=== PATIENT | male | born 1955 | race Caucasian/White ===

== ENCOUNTER 2017-07-29 13:12 | Inpatient (IN) | payer SELFPAY ==
[2017-07-29] MEDS ORDERED: Labetalol IV* 5 MG/ML 20 ML VIAL IV PUSH ONE (14:04)
--- NOTE | 2017-07-29 14:14 | RAD ---
HISTORY: Shortness of breath COMPARISONS: January 22, 2004 VIEWS: 1: frontal portable view of the chest at 2:00 PM FINDINGS: LINES AND TUBES: None. CARDIOMEDIASTINAL SILHOUETTE: The cardiac silhouette is enlarged. The cardiomediastinal silhouette is otherwise normal for portable technique. PLEURA: The costophrenic angles are sharp. No pleural abnormalities are noted. LUNG PARENCHYMA: There is prominence of the central pulmonary vasculature. ABDOMEN: The upper abdomen is clear. There is no subphrenic gas. BONES AND SOFT TISSUES: No bone or soft tissue abnormalities are noted. IMPRESSION: CARDIOMEGALY WITH PULMONARY VASCULAR CONGESTION
[2017-07-29 14:21] LABS: ABS Basophils 0 10^3/ul (0-0.2); ABS Eosinophils 0.1 10^3/ul (0-0.6); ABS Monocytes 0.3 10^3/ul (0-0.8); ABS Neutrophils 3.4 10^3/ul (1.5-7.7); ABS Nucleated RBC 0 10^3/ul; Eosinophil % 1.2 % (0-6); Hematocrit 40 % (42-52); Hemoglobin 13.1 g/dl (14.0-18.0); Lymphocyte % 21.5 % (25-47); Mean Corpuscular HGB Conc 33 g/dl (31-36); Mean Corpuscular Hemoglobin 32 pg (27-31); Mean Corpuscular Volume 97 fL (80-94); Mean Platelet Volume 10 um3 (7.4-10.4); Nucleated Red Blood Cells % 0.1; Platelet Count 134 10^3/ul (150-450); Red Blood Count 4.11 10^6/ul (4.0-5.4); Red Cell Distribution Width 16 % (10.5-15); White Blood Count 4.8 10^3/ul (3.5-10.8)
[2017-07-29 14:34] LABS: INR 1.12 (0.77-1.02)
[2017-07-29 14:38] LABS: EGFR Non-African American 90.1 (>60)
[2017-07-29] MEDS ORDERED: Furosemide IV* 10 MG/ML VIAL (40 MG) IV SLOW PU ONE ×2 (14:58→16:22)
[2017-07-29] MEDS ORDERED: Acetaminophen TAB* 325 MG PO PRN (16:22)
[2017-07-29] MEDS ORDERED: Ondansetron INJ* 2 MG/ML VIAL IV PRN (16:22)
[2017-07-29] MEDS ORDERED: Aspirin Low Dose CHEW TAB* 81 MG PO ONE (16:22)
[2017-07-29] MEDS ORDERED: Perflutren Lipid Microsphere* 3 ML VIAL ONE (16:25)
[2017-07-29] MEDS ORDERED: Nitroglycerin 2% OINT* 1 GM PAK TOPICAL SCH (16:30)
--- NOTE | 2017-07-29 17:18 | ECHO ---
Patient: LULÚ HUGGINS [facility] Rec#: [id number] : 1955 Date: 07/29/2017 Age: 61y Height: 177.8 cm / 70.0 in Weight: 136.08 kg / 299.9 lbs Sex: M BSA: 2.48 Room#: 16 Admit Date#: 07/29/2017 Type: Inpatient Referring: Travis Kerr NP Reading: Marcello Marquez MD Clerk Telegraph Service: Kimberlyn GilletteRDCS,RDMS Transthoracic Echocardiogram Indication: CHF, Cardiomyopathy BP: 144/104 HR: 78 Rhythm: NSR Findings History: Edema, SOB, CAD, TN, PCI, HTN, HLD, DM Technical Comments: The study is technically limited due to patient body habitus. Left Ventricle: The left ventricular chamber size is mildly dilated. Mild concentric left ventricular hypertrophy is observed. There is global hypokinesis of the left ventricle with minor regional variation. There is severely decreased left ventricular systolic function. The estimated ejection fraction is less than 20%. Abnormal left ventricular diastolic function is observed. Left Atrium: The left atrium is mild to moderately dilated. Right Ventricle: The right ventricular cavity size is normal. The right ventricular global systolic function is severely reduced. Right Atrium: The right atrium is moderately dilated. Aortic Valve: The aortic valve structure is not well visualized. The aortic valve leaflets are moderately thickened. Systolic excursion of the aortic valve cusps is reduced. There is no evidence of aortic regurgitation. There is severe aortic stenosis. The aortic valve area, by peak velocities, is calculated at 0.6 cm2. Mitral Valve: The mitral valve leaflets are mildly thickened. There is a trace of mitral regurgitation. There is no evidence of mitral stenosis. Tricuspid Valve: The tricuspid valve leaflets are normal. There is trace tricuspid regurgitation. There is evidence of borderline pulmonary hypertension. Pulmonic Valve: The pulmonic valve structure is not well visualized. There is no evidence of pulmonic regurgitation. Pericardium: A trivial pericardial effusion is visualized. Aorta: The aortic root appears normal. The aortic arch is not well visualized. Pulmonary Artery: The main pulmonary artery is not well visualized. Venous: The inferior vena cava is dilated. There is no change in the dimension of the inferior vena cava with respiration consistent with markedly increased right atrial pressure. Contrast: Definity was used to optimize study. A total of 3 ml was used Summary: There was not any prior study for comparison. Conclusions There is global hypokinesis of the left ventricle with minor regional variation. There is severely decreased left ventricular systolic function. The estimated ejection fraction is less than 20%. Mild concentric left ventricular hypertrophy is observed. The right ventricular global systolic function is severely reduced. The aortic valve leaflets are moderately thickened. There is severe aortic stenosis. There is no evidence of aortic regurgitation. There is a trace of mitral regurgitation. There is trace tricuspid regurgitation. There is evidence of borderline pulmonary hypertension. A trivial pericardial effusion is visualized. Measurements Name Value Normal Range RVIDd (AP) 2D 3.5 cm (0.9 - 2.6) RAd ISD 4CH 5.8 cm (3.4 - 4.9) RA (A4C)W 5 cm (2.9 - 4.6) IVSd (2D) 1.3 cm (0.6 - 1) LVPWd (2D) 1.4 cm (0.6 - 1) LVIDd (2D) 5.5 cm (3.6 - 5.4) LVIDs (2D) 5.2 cm - LV FS (2D) 7 % (25 - 45) Aortic Annulus 2 cm (1.4 - 2.6) Ao root diameter (2D) 3.1 cm (2.1 - 3.5) Ascending Ao 3 cm (2.1 - 3.4) LA dimension (AP) 2D 5 cm (2.3 - 3.8) LAd ISD 4CH 5.7 cm (2.9 - 5.3) LA ISD 4CH W 3.2 cm (2.5 - 4.5) Name Value Normal Range LA ESV SP 4CH (A/L) 50.42 ml - LA ESV SP 2CH (A/L) 103.75 ml - LA ESV BP (A/L) 73.56 ml - LA ESV BP (A/L) index 30 ml/m2 - LA ESV SP 4CH (MOD) 46.76 ml - LA ESV SP 2CH (MOD) 97.58 ml - Name Value Normal Range MV E-wave Vmax 0.9 m/sec - MV deceleration time 152 msec - MV A-wave Vmax 0.3 m/sec - MV E:A ratio 3 ratio - LV septal e' Vmax 0.03 m/sec - LV lateral e' Vmax 0.05 m/sec - LV E:e' septal ratio 30 ratio - LV E:e' lateral ratio 18 ratio - Name Value Normal Range AV Vmax 3.1 m/sec - AV VTI 59 cm - AV peak gradient 38 mmHg - AV mean gradient 21 mmHg - LVOT diameter 2 cm - LVOT Vmax 0.6 m/sec - LVOT VTI 11.2 cm - LVOT peak gradient 1.4 mmHg - LVOT mean gradient 0.6 mmHg - DOI (VTI) 0.2 ratio - GEN (continuity Vmax) 0.6 cm2 - GEN (continuity VTI) 0.6 cm2 - Name Value Normal Range TR Vmax 2.2 m/sec - TR peak gradient 19 mmHg - RAP 15 mmHg - RVSP 34 mmHg - IVC diameter 3.1 cm - Name Value Normal Range PV Vmax 0.5 m/sec - PV peak gradient 1 mmHg -
[2017-07-29] MEDS: Heparin VIAL(*) 5000 UNITS/ML VIAL (FIVE THOUSAND) SUBCUT SCH (22:24)
--- NOTE | 2017-07-29 22:45 | HP ---
CC: Dr. Marquez * HISTORY AND PHYSICAL: DATE OF ADMISSION: 07/29/17 PRIMARY CARE PROVIDER: None. ATTENDING PHYSICIAN WHILE IN THE HOSPITAL: Joshua Veliz MD *(report dictated by Travis Kerr NP). CONSULTING DIRECTOR DIABETES: Dr. Marquez. CHIEF COMPLAINT: 1. Chest discomfort. 2. Dyspnea on exertion. 3. Orthopnea. 4. Weight gain. HISTORY OF PRESENT ILLNESS: Mr. Robertson is a 61-year-old male patient. He carries a history of coronary artery disease. He states the last time he had stents placed was in 2009 at [facility]. We will try to get those records. He comes into our ER today stating that over the last week he has noticed he has had worsening swelling particularly in his genital area, his lower extremities. He states they are always swollen. He has been gaining weight. He states for 2 years he has been going downhill. He has had intermittent chest pain. He states that it is very typical for him to walk to the mailbox and to have chest discomfort with walking just to the mailbox and dyspnea on exertion. He states that he has noticed that he has been unable to lie flat. He states that most of his clothing is not fitting him, he has been gaining weight. He just has been declining over the last couple of weeks. He states he has not had any fevers or chills. He denied having any abdominal discomfort. There is no pain in his testicles or in his penis. He just states that it has been more swollen, he is gaining weight and he has not been feeling well. He came into our ER today because of the worsening swelling. He was evaluated. It was noted that he had pulmonary edema. On his chest x-ray he appeared to be in heart failure. He also had an elevated troponin. He is chest pain free now, but anytime when we lie him flat, he is getting profoundly short of breath. He was evaluated in the ED, there was concern for possible CHF and we were asked to evaluate for admission. PAST MEDICAL HISTORY: Significant for: 1. CAD. 2. Hypertension. 3. Hyperlipidemia. 4. GERD. 5. Borderline diabetes. 6. OH. 7. History of V-tach. PAST SURGICAL HISTORY: He has had heart catheterizations x2 in 2003 and 2009. MEDICATIONS: Home meds were denied. ALLERGIES TO MEDICATIONS: Include no known drug allergies. FAMILY HISTORY: His mother had a history of peripheral vascular disease and heart disease. Father had a history of pneumonia. SOCIAL HISTORY: He does not smoke. He occasionally drinks alcohol. Surrogate decision maker is his friend, Mando. REVIEW OF SYSTEMS: There was no documented fever. He does admit to a significant weight change, although he does not know how much. He denies having any double vision. He denies having any ear discharge. There is no rhinorrhea. There is no sore throat. No thyroid enlargement. He denied having any chest pain currently. He does admit to having orthopnea and dyspnea on exertion and nocturnal dyspnea. He denies any abdominal discomfort. He states that he has not had any nausea or vomiting. No dysuria. No frequency. There has been no loss of consciousness. No pruritus and no skin ulceration. Review of 14 systems completed, all others negative. PHYSICAL EXAMINATION GENERAL: At this time, Mr. Robertson is a 61-year-old male patient. He is chronically ill appearing. He is sitting in the ED stretcher. He does not appear to be in any acute distress. VITAL SIGNS: Revealed blood pressure 134/97, pulse 79, respirations 21. O2 sat 94% on room air. Temperature 98.0. HEENT: Head is atraumatic and normocephalic. Eyes: EOMs are intact. Sclerae anicteric, not pale. Throat: Oral mucosa appears to be dry. No oropharyngeal erythema. NECK: Supple. LUNGS: Lungs are diminished in the bases. Equal diaphragmatic expansion. HEART: Sounds S1, S2. Regular rate and rhythm. No murmurs, rubs, or gallops. ABDOMEN: His abdomen was rounded. It was nontender. It was soft. EXTREMITIES: Pulses were 2+ throughout. He had +3 pitting edema bilaterally all the way up to past his knee. He did appear to have what appears to be anasarca. He had 5/5 strength. GENITALIA: He had swollen testicles and swollen penis, this was palpated. There was no pain on palpation with this and no crepitus was felt. NEUROLOGIC: He is awake, alert and oriented x3. No gross focal deficits. SKIN: Intact. DIAGNOSTIC STUDIES/LAB DATA: His labs today; WBC 4.8, RBC 4.11, hemoglobin 13.1, hematocrit of 40, platelet count of 134,000. The INR was 1.12, PTT 32.3. The sodium was 140, potassium of 4, chloride of 106, bicarb 26, BUN 16, creatinine 0.86, glucose 116, calcium 9.5. Total bili 1.2, AST 35, ALT 33, alk phos 90. CK was 112, CK-MB 5.7, troponin 0.07, CRP 12.16, BNP 676, albumin of 4.4. Serology was negative for flu. The patient did have a chest x-ray obtained today, which revealed cardiomegaly with pulmonary vascular congestion. EKG obtained today, I do not have a previous for comparison, it shows a sinus tachycardia, rate of 103. No ST elevations. He had flattened T waves in V5 and V6, inverted in lead 1 and aVL. He does have what appeared to be an intraventricular conduction delay, but again no previous for comparison. Old medical records were reviewed. ASSESSMENT AND PLAN: Mr. Robertson is 61-year-old male patient who has not sought medical care in some time, coming into the ER today with complaints of chest pain intermittently for several weeks now, in addition to this orthopnea, nocturnal dyspnea, weight gain. He will be admitted under inpatient status for: 1. Congestive heart failure. I presume the patient has congestive heart failure, his BNP is up, he has cardiomegaly, he appears to be anasarcic. He has fluid on x- ray. The plan will be to go ahead and get an echo, cycle his troponins, cardiology consult, Lasix, nitrates, aspirin for now. I am going to hold beta lee in the setting of acute congestive heart failure exacerbation as this can make things worse and we will get Cardiology involved for evaluation. 2. Indeterminate troponin. Again, probably secondary to demand ischemia from the congestive heart failure. We will trend these. He is getting an echo and Cardiology will be following. He is going to receive an aspirin for the time being and nitrates and we will check lipid panel and A1c. 3. Coronary artery disease. Again, minimally he is on an aspirin. We are going to diurese him. We will put him on nitrates. Holding on beta-blockers unless the trop goes up, holding on heparin unless the trop continues to elevate. Echo is pending and Dr. Marquez will be evaluating. 4. Hypertension. Again, he will be on Lasix and nitrates for the time being. 5. Hyperlipidemia. Check lipids in the morning. 6. Gastroesophageal reflux disease. Continue with meds as prescribed. 7. History of ventricular tachycardia. He will be placed on telemetry. 8. Code status. Full code. 9. Fluids, electrolytes, and nutrition. Heart healthy diet. TIME SPENT: Time spent on the admission was approximately 60 minutes, greater than half time was spent [id number] with the patient obtaining my history and physical, other half the time was spent going over the plan of care with the patient and implementing the plan of care. I did discuss plan of care with my attending, Dr. Veliz, he is in agreement. TRAVIS KERR, LUIGI [id number]/[facility] #: [id number] RADHA
[2017-07-30 06:32] LABS: ABS Basophils 0 10^3/ul (0-0.2); ABS Eosinophils 0.1 10^3/ul (0-0.6); ABS Lymphocytes 1.4 10^3/ul (1.0-4.8); ABS Monocytes 0.5 10^3/ul (0-0.8); ABS Neutrophils 2.8 10^3/ul (1.5-7.7); ABS Nucleated RBC 0 10^3/ul; Eosinophil % 1.6 % (0-6); Hematocrit 36 % (42-52); Hemoglobin 12.1 g/dl (14.0-18.0); Lymphocyte % 28.7 % (25-47); Mean Corpuscular HGB Conc 33 g/dl (31-36); Mean Corpuscular Hemoglobin 32 pg (27-31); Mean Corpuscular Volume 96 fL (80-94); Mean Platelet Volume 10 um3 (7.4-10.4); Nucleated Red Blood Cells % 0.1; Platelet Count 121 10^3/ul (150-450); Red Blood Count 3.76 10^6/ul (4.0-5.4); Red Cell Distribution Width 15 % (10.5-15); White Blood Count 4.8 10^3/ul (3.5-10.8)
[2017-07-30] MEDS: Heparin VIAL(*) 5000 UNITS/ML VIAL (FIVE THOUSAND) SUBCUT SCH ×3 (07:25→21:52)
[2017-07-30] MEDS: Aspirin Low Dose CHEW TAB* 81 MG PO SCH (08:00)
[2017-07-30] MEDS ORDERED: Furosemide IV* 10 MG/ML VIAL (40 MG) IV SLOW PU SCH (09:00)
--- NOTE | 2017-07-30 09:34 | ED ---
Juan F Laguna Angela, scribed for Danie Bower MD on 07/29/17 at 1345 . Shortness of Breath - HPI Summary HPI Summary: This pt is a 61 y/o male presenting to [facility] c/o SOB. Pt reports he becomes SOB with minimal exertion. Pt additionally states he has had increased swelling all over his body. He notes having the flu in May 2017, and now just has a sinus infection. PMHx: MD (at 48 y/o), HTN, high cholesterol, borderline diabetes. - History of Current Complaint Chief Complaint: EDShortnessOfBreath Time Seen by Provider: 07/29/17 13:32 Hx Obtained From: Patient Onset/Duration: Lasting Days, Still Present Timing: Constant Dyspnea At: Exertion - minimal Aggrevating Factors: Movement Alleviating Factors: Nothing Associated Signs & Symptoms: Calf Pain/Swelling - Allergy/Home Medications Allergies/Adverse Reactions: Allergies Allergy/AdvReac Type Severity Reaction Status Date / Time No Known Allergies Allergy Verified 07/29/17 13:20 Home Medications: Home Medications NK [No Home Medications Reported] 07/29/17 [History Confirmed 07/29/17] PMH/Surg Hx/FS Hx/Imm Hx Endocrine/Hematology History: Reports: Hx Diabetes - borderline Cardiovascular History: Reports: Hx Hypercholesterolemia, Hx Hypertension, Hx Myocardial Infarction GI History: Reports: Hx Gastroesophageal Reflux Disease Infectious Disease History: No Infectious Disease History: Denies: Traveled Outside the [place] in Last 30 Days - Family History Family History: Father: arrhythmias, [place]. Mother: peripheral vascular disease, gangrene. - Social History Alcohol Use: None Substance Use Type: Reports: None Smoking Status (MU): Never Smoked Tobacco Review of Systems Negative: Fever, Chills Negative: Chest Pain Positive: Shortness Of Breath Positive: Edema All Other Systems Reviewed And Are Negative: Yes Physical Exam - Summary Physical Exam Summary: VITAL SIGNS: Reviewed. GENERAL: Patient is an obese male with some respiratory distress secondary to SOB. Pt is speaking in full sentences. HEAD AND FACE: No signs of trauma. No ecchymosis, hematomas or skull depressions. No sinus tenderness. EYES: PERRLA, EOMI x 2, No injected conjunctiva, no nystagmus. EARS: Hearing grossly intact. Ear canals and tympanic membranes are within normal limits. MOUTH: Oropharynx within normal limits. NECK: Supple, trachea is midline, no adenopathy, no JVD, no carotid bruit, no c- spine tenderness, neck with full ROM. CHEST: Symmetric, no tenderness at palpation LUNGS: Clear to auscultation bilaterally. No wheezing or crackles. CVS: Regular rate and rhythm, S1 and S2 present, no murmurs or gallops appreciated. ABDOMEN: Soft, non-tender. No signs of distention. No rebound no guarding, and no masses palpated. Bowel sounds are normal. EXTREMITIES: FROM in all major joints, no cyanosis or clubbing. Diffuse edema in the lower extremity 2+. NEURO: Alert and oriented x 3. No acute neurological deficits. Speech is normal and follows commands. SKIN: Dry and warm Triage Information Reviewed: Yes Vital Signs On Initial Exam: Initial Vitals Temp Pulse Resp BP Pulse Ox 98 F 109 22 164/110 95 07/29/17 13:16 07/29/17 13:16 07/29/17 13:16 07/29/17 13:16 07/29/17 13:16 Vital Signs Reviewed: Yes Diagnostics - Vital Signs Vital Signs Temp Pulse Resp BP Pulse Ox 07/29/17 13:16 98 F 109 22 164/110 95 - Laboratory Result Diagrams: 07/29/17 14:08 07/29/17 14:08 Lab Statement: Any lab studies that have been ordered have been reviewed, and results considered in the medical decision making process. - Radiology Chest XR Xray Interpretation: Positive (See Comments) - IMPRESSION: cardiomegaly with pulmonary vascular congestion. Dr. Bower has reviewed this radiology report. Radiology Interpretation Completed By: Radiologist - EKG 13:22 Cardiac Rate: Tachycardia EKG Rhythm: Sinus Tachycardia - at 103 bpm EKG Interpretation: No ST elevation. Q wave in III and aVF. Course/Dx - Course Assessment/Plan: This pt is a 61 y/o male presenting to [facility] c/o SOB. Pt reports he becomes SOB with minimal exertion. Pt additionally states he has had increased swelling all over his body. He notes having the flu in Apr/May 2017, and now just has a sinus infection. PMHx: MD (at 48 y/o), HTN, high cholesterol , borderline diabetes. Test results without any significant abnormalities except for troponin of 0.07. BNP of 676. Influenza A and B is negative. Chest XR shows cardiomegaly with pulmonary vascular congestion. In the ED course, the pt was placed on a monitor since he was hypertensive. Pt was given Labetalol and his blood pressure is much improved. He was also given Lasix for anasarca. At this point I discussed the test results and findings with Dr. Major, hospitalist, who accepted the pt for admission. Pt is hemodynamically stable, alert and oriented x3. - Diagnoses Provider Diagnoses: CHF exacerbation, Hypertensive urgency, Anasarca - Physician Notifications Discussed Care of Patient With: Abhay Major Time Discussed With Above Provider: 15:20 Instructed by Provider To: Other - I discussed pt care with Dr. Major, hospitalist, who has agreed to admit the pt. Discharge - Discharge Plan Condition: Stable Disposition: ADMITTED TO [facility] The documentation as recorded by the Juan F mirza Angela accurately reflects the service I personally performed and the decisions made by me, Danie Bower MD.
[2017-07-30] MEDS ORDERED: Lisinopril TAB* 5 MG PO ONE (12:28)
[2017-07-30] MEDS: Carvedilol TAB* 6.25 MG PO SCH ×2 (14:12→21:53)
[2017-07-30] MEDS: Furosemide IV* 10 MG/ML VIAL (40 MG) IV SCH ×2 (17:37→22:10)
--- NOTE | 2017-07-30 18:15 | CONS ---
CARDIOLOGY CONSULTATION: DATE OF CONSULT: 07/30/17 INDICATION FOR CONSULTATION: Congestive heart failure, aortic stenosis. HISTORY OF PRESENT ILLNESS: The patient is a 61-year-old gentleman with a history of coronary artery disease, history of stenting in 2000 and 2003, I am unclear as to which arteries were stented. The patient lost his insurance in 2010 and has not seen a physician since then. The patient states that he has noticed increasing dyspnea and chest pain for the past 6 months. He has also noted for the last month or so a significant increase in his swelling. He has had significant "scrotal and upper thigh swelling for the past 2 weeks." The patient says he has had orthopnea. He denies any lightheadedness, dizziness, or syncope. The patient came to the emergency room and was found to be in congestive heart failure. His echocardiogram shows severe global hypokinesis with ejection fraction of less than 20%. He also has severe aortic stenosis. The patient was admitted to the hospital. He was given IV Lasix. He diuresed 5 pounds last night. PAST MEDICAL HISTORY: Significant for coronary artery disease. PAST SURGICAL HISTORY: None. MEDICATIONS: None. ALLERGIES: None. FAMILY HISTORY: Positive for early coronary artery disease. SOCIAL HISTORY: He is currently not working. He denies tobacco. Rare alcohol use. He does not get any regular exercise. REVIEW OF SYSTEMS: Negative for fevers or chills. Negative for changes in bowel or bladder habits. Positive weight gain. Other 12-point review is unremarkable. PHYSICAL EXAM: Vital Signs: Height is 5 feet and 11 inches, weight is 360 pounds. Temperature 97.3, heart rate is 84, blood pressure 130/66, respiratory rate is 18, oxygen saturation 97% on room air. Sclerae anicteric. Oropharynx is pink without erythema. Carotids are 2+ without bruits. JVD is normal. Thyroid is normal. Cardiac Exam: S1 and S2 with a 3/6 systolic ejection murmur heard best at the left upper sternal border. PMI is difficult to assess. Lungs have mild rales at the bases. There is no dullness to percussion. Upper lung blanchard are clear. Abdomen is severely obese, soft, nontender, nondistended. Normoactive bowel sounds. Extremities show 3+ edema. He has difficult to palpate pulses of dorsal pedis and popliteal. His radial and brachial pulses are normal. The patient is awake and alert and oriented. He moves all 4 extremities equally. DIAGNOSTIC STUDIES/LAB DATA: CBC within normal limits. Chemistries within normal limits. TSH is pending. Total cholesterol 203, HDL of 28, LDL of 151, AST and ALT within normal limits. IMPRESSION: This is a 61-year-old gentleman with a history of coronary artery disease limited with anasarca. His echocardiogram showed severely reduced LV systolic function and severe aortic stenosis. For now, my recommendation is to continue to diurese the patient aggressively. We will follow his BUN and creatinine for renal insufficiency. The patient will be started on an SAHRA inhibitor, beta-lee, statin therapy. At some point during this hospitalization, the patient will undergo cardiac catheterization for further evaluation. [id number]/[facility] #: [id number] RADHA
--- NOTE | 2017-07-30 19:00 | PN ---
Subjective Date of Service: 07/30/17 Interval History: Diurseing. attests to 40-50lb increase in weight in last month. orthopnea. 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 Family history of mother and grandmother with loss of legs. mother after plavix. Was referred to hospital from PCP that time but went to work instead and chose to [place] so that insects would bite his leg until this "healed him" ...after several years. After 2010 procedure got BMS due to these concerns and decided to take half the dose without consulting his doctor. Would rather then lose his legs. Objective Active Medications: Acetaminophen (Tylenol Tab*) 650 mg PO Q4H PRN PRN Reason: FEVER/PAIN Aspirin (Aspirin Low Dose Tab*) 81 mg PO DAILY [facility] Last Admin: 07/30/17 08:00 Dose: 81 mg Atorvastatin Calcium (Lipitor*) 80 mg PO 2100 [facility] Carvedilol (Coreg Tab*) 6.25 mg PO BID [facility] Last Admin: 07/30/17 14:12 Dose: 6.25 mg Furosemide (Lasix Iv*) 40 mg IV BID [facility] Last Admin: 07/30/17 17:37 Dose: 40 mg Heparin Sodium (Porcine) (Heparin Vial(*)) 5,000 units SUBCUT Q8HR [facility] Last Admin: 07/30/17 14:13 Dose: 5,000 units Ondansetron HCl (Zofran Inj*) 4 mg IV Q6H PRN PRN Reason: NAUSEA Vital Signs - 8 hr 07/30/17 07/30/17 11:31 15:46 Temperature 98.3 F 98.2 F Pulse Rate 83 86 Respiratory 18 20 Rate Blood Pressure 120/79 132/82 (mmHg) O2 Sat by Pulse 95 96 Oximetry Oxygen Devices in Use Now: None Appearance: NAD Eyes: No Scleral Icterus, PERRLA Ears/Nose/Mouth/Throat: NL Teeth, Lips, Gums, Mucous Membranes Moist Respiratory: Symmetrical Chest Expansion and Respiratory Effort, Clear to Auscultation Cardiovascular: - - 3/6 AMY Abdominal: - - very distended, soft, nontender. Extremities: - - 3+ edema Skin: - - hyperpigmentation left leg. Neurological: Alert and Oriented x 3, NL Sensation, NL Muscle Strength and Tone Nutrition: Taking PO's Result Diagrams: 07/30/17 06:12 07/29/17 14:08 Additional Lab and Data: Laboratory Results - last 24 hr 07/30/17 07/30/17 07/30/17 06:12 06:12 06:12 WBC 4.8 RBC 3.76 L Hgb 12.1 L Hct 36 L MCV 96 H MCH 32 H MCHC 33 RDW 15 Plt Count 121 L MPV 10 Neut % (Auto) 58.6 Lymph % (Auto) 28.7 [place] % (Auto) 10.4 H Eos % (Auto) 1.6 Baso % (Auto) 0.7 Absolute Neuts (auto) 2.8 Absolute Lymphs (auto) 1.4 Absolute Monos (auto) 0.5 Absolute Eos (auto) 0.1 Absolute Basos (auto) 0 Absolute Nucleated RBC 0 Nucleated RBC % 0.1 Hemoglobin A1c 7.3 H Triglycerides 120 Cholesterol 203 LDL Cholesterol 151 HDL Cholesterol 28.4 TSH 2.47 Microbiology and Other Data: Microbiology 07/29/17 14:28 Nasopharyngeal Influenza Types A,B Antigen (VALENTE) - Final Specimen received for Influenza A/B Molecular testing Assess/Plan/Problems-Billing Assessment: 61 year old male PMH CAD w/ stents 2003, 2010, ?plavix intolerence (?familial), noncompliance to medical advise, p/w acute severe CHF, EF <20% and severe Aortic Stenosis. Diuresing. Planned C this admission. - Patient Problems (1) Severe systolic congestive heart failure Current Visit: Yes Status: Acute Code(s): I50.20 - UNSPECIFIED SYSTOLIC ( CONGESTIVE) HEART FAILURE SNOMED Code(s): 71933407 Comment: appreciate cardiology recs EF <20% ischemic planned LHC new coreg 6.25mg BID, lisinopril 5mg diuresis with 40IV lasix BID, strict io, daily weights. may need CABG? vs lifevest until can get Aortic valve repair. (2) CAD (coronary artery disease) Current Visit: Yes Status: Acute Code(s): I25.10 - ATHSCL HEART DISEASE OF [place] CORONARY ARTERY W/O ANG PCTRS SNOMED Code(s): 36044381 Comment: s/p TASHA 2003, BMS 2010, awaiting records still needs LHC this admission ?plavix intolerence (?famililal) aspirin. statin. (3) Diabetes mellitus Current Visit: Yes Status: Acute Code(s): E11.9 - TYPE 2 DIABETES MELLITUS WITHOUT COMPLICATIONS SNOMED Code(s): 88261332 Comment: A1C 7.3. patient is very particular about which medications he will take. need to discuss. (4) Hyperlipidemia Current Visit: Yes Status: Acute Code(s): E78.5 - HYPERLIPIDEMIA, UNSPECIFIED SNOMED Code(s): 91552500 Comment: atorvastatin 80mg started. LDL 151 HDL 28 (5) Noncompliance with medication regimen Current Visit: Yes Status: Acute Code(s): Z91.14 - PATIENT'S OTHER NONCOMPLIANCE WITH MEDICATION REGIMEN SNOMED Code(s): 661758284 Status and Disposition: medicine inpatient. needs aggressive diuresis and [facility]
[2017-07-30] MEDS: Atorvastatin* 80 MG TAB PO SCH (21:54)
[2017-07-31] MEDS: Heparin VIAL(*) 5000 UNITS/ML VIAL (FIVE THOUSAND) SUBCUT SCH ×3 (06:11→20:39)
[2017-07-31 06:47] LABS: EGFR Non-African American 76.6 (>60)
[2017-07-31] MEDS: Aspirin Low Dose CHEW TAB* 81 MG PO SCH (08:29)
[2017-07-31] MEDS: Furosemide IV* 10 MG/ML VIAL (40 MG) IV SCH ×2 (08:29→20:33)
[2017-07-31] MEDS: Carvedilol TAB* 6.25 MG PO SCH ×2 (08:30→20:33)
--- NOTE | 2017-07-31 17:03 | PN ---
Subjective Date of Service: 07/31/17 Interval History: Weight down daily, trouble collecting his urine initially given scrotal edema but better success in the shower now. still off O2. hemodynamically stable. Objective Active Medications: Acetaminophen (Tylenol Tab*) 650 mg PO Q4H PRN PRN Reason: FEVER/PAIN Aspirin (Aspirin Low Dose Tab*) 81 mg PO DAILY [facility] Last Admin: 07/31/17 08:29 Dose: 81 mg Atorvastatin Calcium (Lipitor*) 80 mg PO 2100 [facility] Last Admin: 07/30/17 21:54 Dose: 80 mg Carvedilol (Coreg Tab*) 6.25 mg PO BID [facility] Last Admin: 07/31/17 08:30 Dose: 6.25 mg Furosemide (Lasix Iv*) 40 mg IV BID [facility] Last Admin: 07/31/17 08:29 Dose: 40 mg Heparin Sodium (Porcine) (Heparin Vial(*)) 5,000 units SUBCUT Q8HR [facility] Last Admin: 07/31/17 15:43 Dose: 5,000 units Ondansetron HCl (Zofran Inj*) 4 mg IV Q6H PRN PRN Reason: NAUSEA Vital Signs - 8 hr 07/31/17 07/31/17 11:01 15:08 Temperature 98.2 F 98.3 F Pulse Rate 66 79 Respiratory 16 20 Rate Blood Pressure 93/63 127/82 (mmHg) O2 Sat by Pulse 96 96 Oximetry Oxygen Devices in Use Now: None Appearance: NAD, chronically ill appearing. Eyes: No Scleral Icterus, PERRLA Ears/Nose/Mouth/Throat: NL Teeth, Lips, Gums, Mucous Membranes Moist Neck: Trachea Midline Respiratory: Symmetrical Chest Expansion and Respiratory Effort, Clear to Auscultation Cardiovascular: RRR, - - 3/6 AMY Abdominal: - - distendend, soft. nontender. Extremities: - - 2+ edema. Skin: - - hyperpigmentation left calf. Neurological: Alert and Oriented x 3, NL Sensation, NL Muscle Strength and Tone Nutrition: Taking PO's Result Diagrams: 07/30/17 06:12 07/31/17 06:25 Additional Lab and Data: Laboratory Results - last 24 hr 07/31/17 06:25 Sodium 139 Potassium 3.7 Chloride 101 Carbon Dioxide 29 Anion Gap 9 BUN 18 Creatinine 0.99 Est GFR ( Amer) 98.5 Est GFR (Non-Af Amer) 76.6 BUN/Creatinine Ratio 18.2 Glucose 122 H Calcium 9.3 Microbiology and Other Data: Microbiology 07/29/17 14:28 Nasopharyngeal Influenza Types A,B Antigen (VALENTE) - Final Specimen received for Influenza A/B Molecular testing Assess/Plan/Problems-Billing Assessment: 61 year old male PMH CAD w/ stents 2003, 2010, ?plavix intolerence (?familial), noncompliance to medical advise, p/w acute severe CHF, EF <20% and severe Aortic Stenosis. Diuresing. Planned [facility] this admission. - Patient Problems (1) Severe systolic congestive heart failure Current Visit: Yes Status: Acute Code(s): I50.20 - UNSPECIFIED SYSTOLIC ( CONGESTIVE) HEART FAILURE SNOMED Code(s): 36102424 Comment: appreciate cardiology recs EF <20% ischemic planned C continue coreg 6.25mg BID got lisinopril 5mg x once, careful with afterload reduction given severe . will hold for now during acute diuresis. diuresis with 40IV lasix BID, strict io, daily weights (164.2->162->158.8 kg) may need CABG? vs lifevest until can get Aortic valve repair. (2) CAD (coronary artery disease) Current Visit: Yes Status: Acute Code(s): I25.10 - ATHSCL HEART DISEASE OF [place] CORONARY ARTERY W/O ANG PCTRS SNOMED Code(s): 28865577 Comment: s/p TASHA 2003, BMS 2010, awaiting records still needs [facility] this admission ?plavix intolerence (?famililal) aspirin. statin. (3) Diabetes mellitus Current Visit: Yes Status: Acute Code(s): E11.9 - TYPE 2 DIABETES MELLITUS WITHOUT COMPLICATIONS SNOMED Code(s): 42116885 Comment: A1C 7.3. patient is very particular about which medications he will take. need to discuss. (4) Hyperlipidemia Current Visit: Yes Status: Acute Code(s): E78.5 - HYPERLIPIDEMIA, UNSPECIFIED SNOMED Code(s): 36579862 Comment: atorvastatin 80mg started. LDL 151 HDL 28 (5) Noncompliance with medication regimen Current Visit: Yes Status: Acute Code(s): Z91.14 - PATIENT'S OTHER NONCOMPLIANCE WITH MEDICATION REGIMEN SNOMED Code(s): 956417054 Status and Disposition: medicine inpatient. needs aggressive diuresis and LHC this admission.
[2017-07-31] MEDS: Atorvastatin* 80 MG TAB PO SCH (20:33)
[2017-08-01 04:49] LABS: Hematocrit 38 % (42-52); Hemoglobin 12.5 g/dl (14.0-18.0); Mean Corpuscular HGB Conc 33 g/dl (31-36); Mean Corpuscular Hemoglobin 32 pg (27-31); Mean Corpuscular Volume 96 fL (80-94); Mean Platelet Volume 9 um3 (7.4-10.4); Platelet Count 130 10^3/ul (150-450); Red Blood Count 3.93 10^6/ul (4.0-5.4); Red Cell Distribution Width 15 % (10.5-15); White Blood Count 4.2 10^3/ul (3.5-10.8)
[2017-08-01 04:56] LABS: ABS Basophils 0 10^3/ul (0-0.2); ABS Eosinophils 0.1 10^3/ul (0-0.6); ABS Lymphocytes 1.5 10^3/ul (1.0-4.8); ABS Monocytes 0.4 10^3/ul (0-0.8); ABS Neutrophils 2.1 10^3/ul (1.5-7.7); ABS Nucleated RBC 0 10^3/ul; Eosinophil % 2.4 % (0-6); Lymphocyte % 36.4 % (25-47); Nucleated Red Blood Cells % 0
[2017-08-01 04:57] LABS: EGFR Non-African American 74.9 (>60)
[2017-08-01] MEDS: Heparin VIAL(*) 5000 UNITS/ML VIAL (FIVE THOUSAND) SUBCUT SCH ×3 (05:49→21:07)
[2017-08-01] MEDS: Aspirin Low Dose CHEW TAB* 81 MG PO SCH (09:15)
[2017-08-01] MEDS: Carvedilol TAB* 6.25 MG PO SCH ×2 (09:15→20:54)
[2017-08-01] MEDS: Furosemide IV* 10 MG/ML VIAL (40 MG) IV SCH ×2 (09:15→20:53)
[2017-08-01] MEDS ORDERED: Potassium Chloride LIQUID* 20 MEQ PACKET PO ONE (10:25)
--- NOTE | 2017-08-01 16:44 | PN ---
Subjective Date of Service: 08/01/17 Interval History: diuresing well. i/os still likely not that accurate. planned ECHO tomorrow, to reassess LV function ?[facility] saturday. vs transfer to another facility([facility]) scrotal edema decreasing. refusing every third heparin shot. Objective Active Medications: Acetaminophen (Tylenol Tab*) 650 mg PO Q4H PRN PRN Reason: FEVER/PAIN Aspirin (Aspirin Low Dose Tab*) 81 mg PO DAILY [facility] Last Admin: 08/01/17 09:15 Dose: 81 mg Atorvastatin Calcium (Lipitor*) 80 mg PO 2100 [facility] Last Admin: 07/31/17 20:33 Dose: 80 mg Carvedilol (Coreg Tab*) 6.25 mg PO BID [facility] Last Admin: 08/01/17 09:15 Dose: 6.25 mg Furosemide (Lasix Iv*) 40 mg IV BID [facility] Last Admin: 08/01/17 09:15 Dose: 40 mg Heparin Sodium (Porcine) (Heparin Vial(*)) 5,000 units SUBCUT Q8HR [facility] Last Admin: 08/01/17 14:12 Dose: 5,000 units Ondansetron HCl (Zofran Inj*) 4 mg IV Q6H PRN PRN Reason: NAUSEA Vital Signs - 8 hr 08/01/17 11:53 Temperature 98.0 F Pulse Rate 73 Respiratory 24 Rate Blood Pressure 111/77 (mmHg) O2 Sat by Pulse 95 Oximetry Oxygen Devices in Use Now: None Appearance: NAD, chronically ill appearing. Ears/Nose/Mouth/Throat: NL Teeth, Lips, Gums, Mucous Membranes Moist Respiratory: Symmetrical Chest Expansion and Respiratory Effort, Clear to Auscultation Cardiovascular: RRR, - - 3/6 AMY Abdominal: - - soft, massively distended. Extremities: - - 2+ edema Skin: - - hyperpigmentation left calf Neurological: Alert and Oriented x 3 Nutrition: Taking PO's Result Diagrams: 08/01/17 04:36 08/01/17 04:36 Additional Lab and Data: Laboratory Results - last 24 hr 08/01/17 08/01/17 04:36 04:36 WBC 4.2 RBC 3.93 L Hgb 12.5 L Hct 38 L MCV 96 H MCH 32 H MCHC 33 RDW 15 Plt Count 130 L MPV 9 Neut % (Auto) 50.9 Lymph % (Auto) 36.4 [place] % (Auto) 9.4 H Eos % (Auto) 2.4 Baso % (Auto) 0.9 Absolute Neuts (auto) 2.1 Absolute Lymphs (auto) 1.5 Absolute Monos (auto) 0.4 Absolute Eos (auto) 0.1 Absolute Basos (auto) 0 Absolute Nucleated RBC 0 Nucleated RBC % 0 Sodium 137 Potassium 3.8 Chloride 100 L Carbon Dioxide 29 Anion Gap 8 BUN 20 Creatinine 1.01 Est GFR ( Amer) 96.3 Est GFR (Non-Af Amer) 74.9 BUN/Creatinine Ratio 19.8 Glucose 140 H Calcium 9.0 Microbiology and Other Data: Microbiology 07/29/17 14:28 Nasopharyngeal Influenza Types A,B Antigen (VALENTE) - Final Specimen received for Influenza A/B Molecular testing Assess/Plan/Problems-Billing Assessment: 61 year old male PMH CAD w/ stents 2003, 2010, ?plavix intolerence (?familial), noncompliance to medical advise, p/w acute severe CHF, EF <20% and severe Aortic Stenosis. Diuresing. Planned [facility] this admission. - Patient Problems (1) Severe systolic congestive heart failure Current Visit: Yes Status: Acute Code(s): I50.20 - UNSPECIFIED SYSTOLIC ( CONGESTIVE) HEART FAILURE SNOMED Code(s): 82120747 Comment: appreciate cardiology recs EF <20%, repeating ECHO per cardiology 08/02 ischemic planned [facility] ? 08/05 vs transfer to tertiary care center continue coreg 6.25mg BID got lisinopril 5mg x once, careful with afterload reduction given severe . will hold for now during acute diuresis. diuresis with 40IV lasix BID, strict io, daily weights (164.2->162->158.8 kg -> 157) may need CABG? vs lifevest until can get Aortic valve repair. (2) CAD (coronary artery disease) Current Visit: Yes Status: Acute Code(s): I25.10 - ATHSCL HEART DISEASE OF [place] CORONARY ARTERY W/O ANG PCTRS SNOMED Code(s): 46347878 Comment: s/p TASHA 2003, BMS 2010, awaiting records still needs [facility] this admission ?plavix intolerence (?famililal) aspirin. statin. (3) Diabetes mellitus Current Visit: Yes Status: Acute Code(s): E11.9 - TYPE 2 DIABETES MELLITUS WITHOUT COMPLICATIONS SNOMED Code(s): 98111719 Comment: A1C 7.3. patient is very particular about which medications he will take. need to discuss. (4) Hyperlipidemia Current Visit: Yes Status: Acute Code(s): E78.5 - HYPERLIPIDEMIA, UNSPECIFIED SNOMED Code(s): 24598626 Comment: atorvastatin 80mg started. LDL 151 HDL 28 (5) Noncompliance with medication regimen Current Visit: Yes Status: Acute Code(s): Z91.14 - PATIENT'S OTHER NONCOMPLIANCE WITH MEDICATION REGIMEN SNOMED Code(s): 490905788 Status and Disposition: medicine inpatient. needs aggressive diuresis and [facility] this admission. Attending: Joshua Veliz
[2017-08-01] MEDS: Atorvastatin* 80 MG TAB PO SCH (20:54)
[2017-08-02] MEDS: Heparin VIAL(*) 5000 UNITS/ML VIAL (FIVE THOUSAND) SUBCUT SCH ×3 (05:53→20:02)
[2017-08-02 07:10] LABS: EGFR Non-African American 77.5 (>60)
[2017-08-02] MEDS ORDERED: Perflutren Lipid Microsphere* 3 ML VIAL ONE (07:54)
[2017-08-02] MEDS: Furosemide IV* 10 MG/ML VIAL (40 MG) IV SCH ×2 (08:56→19:50)
[2017-08-02] MEDS: Aspirin Low Dose CHEW TAB* 81 MG PO SCH (08:56)
[2017-08-02] MEDS: Carvedilol TAB* 6.25 MG PO SCH ×2 (08:56→19:50)
--- NOTE | 2017-08-02 15:05 | ECHO ---
Patient: LULÚ HUGGINS [facility] Rec#: [id number] : 1955 Date: 08/02/2017 Age: 61y Height: 180.34 cm / 71.0 in Weight: 154.22 kg / 339.9 lbs Sex: M BSA: 2.64 Room#: 451 Admit Date#: 07/29/2017 Type: Inpatient Referring: Marcial Kuhn MD Reading: Marcial Kuhn MD Quality Worker: Kathya [facility] Transthoracic Echocardiogram Indication: Follow up cardiomyopathy and CHF. BP: 132/83 HR: 75 Rhythm: NSR Findings History: Edema, CAD with PA, s/p PCI, HTN, HLD, DM. This is a LIMITED study to reevaluate LVEF and aortic stenosis. Technical Comments: The study is technically difficult. The study is technically limited due to patient body habitus. Completed at 0845. Left Ventricle: The left ventricular chamber size is mildly dilated. There is global hypokinesis of the left ventricle with minor regional variation.The anterior segments may be more severely hypokinetic. There is severely decreased left ventricular systolic function. The estimated ejection fraction is 20-25%. closer to 25%. Right Ventricle: The right ventricular cavity size is normal. The right ventricular global systolic function is moderately reduced. Aortic Valve: The aortic valve structure is not well visualized. The aortic valve leaflets are moderately thickened. Systolic excursion of the aortic valve cusps is reduced. There is no evidence of aortic regurgitation. There is severe aortic stenosis.Probable Low gradient in the setting of severe LV dysfunction. Peak AV velocity of 3.4 mps/LVOT velocity of .8 mps. Mean gradient of 29 mmhg. DI .24 c/w severe . The mean gradient of the aortic valve is 29.43 mmHg. The peak instantaneous gradient of the aortic valve is 46.84 mmHg. The aortic valve area, by peak velocities, is calculated at 0.7 cm2. The aortic valve area, by VTI's, is calculated at 0.7 cm2. Pericardium: There is no significant pericardial effusion. A pericardial fat pad is visualized. Contrast: Definity was used to optimize study. 5 mL of diluted Definity was utilized. Intravenous contrast was used to enhance endocardial border definition. Conclusions The study is technically difficult. There is severely decreased left ventricular systolic function. The estimated ejection fraction is 20-25%, closer to 25%. The right ventricular global systolic function is moderately reduced. There is severe aortic stenosis. Probable Low gradient in the setting of severe LV dysfunction. Peak AV velocity of 3.4 mps/LVOT velocity of .8 mps. Mean gradient of 29 mmhg. DI .24 c/w severe . The aortic valve area, by peak velocities, is calculated at 0.7 cm2. slight improvement in EF c/t 2.5.18 Measurements Name Value Normal Range AV Vmax 3.4 m/sec - AV VTI 70.5 cm - AV peak gradient 46.84 mmHg - AV mean gradient 29.43 mmHg - LVOT diameter 2 cm - LVOT Vmax 0.81 m/sec - LVOT VTI 14.6 cm - LVOT peak gradient 2.61 mmHg - LVOT mean gradient 1.42 mmHg - GEN (continuity Vmax) 0.7 cm2 - GEN (continuity VTI) 0.7 cm2 -
--- NOTE | 2017-08-02 18:31 | PN ---
Subjective Date of Service: 08/02/17 Interval History: feels good. diuresing well. no pain, sob, palpitations Family History: Unchanged from Admission Social History: Unchanged from Admission Past Medical History: Unchanged from Admission Objective Active Medications: Acetaminophen (Tylenol Tab*) 650 mg PO Q4H PRN PRN Reason: FEVER/PAIN Aspirin (Aspirin Low Dose Tab*) 81 mg PO DAILY [facility] Last Admin: 08/02/17 08:56 Dose: 81 mg Atorvastatin Calcium (Lipitor*) 80 mg PO 2100 [facility] Last Admin: 08/01/17 20:54 Dose: 80 mg Carvedilol (Coreg Tab*) 6.25 mg PO BID [facility] Last Admin: 08/02/17 08:56 Dose: 6.25 mg Furosemide (Lasix Iv*) 40 mg IV BID [facility] Last Admin: 08/02/17 08:56 Dose: 40 mg Heparin Sodium (Porcine) (Heparin Vial(*)) 5,000 units SUBCUT Q8HR [facility] Last Admin: 08/02/17 14:21 Dose: 5,000 units Ondansetron HCl (Zofran Inj*) 4 mg IV Q6H PRN PRN Reason: NAUSEA Vital Signs - 8 hr 08/02/17 08/02/17 11:20 15:22 Temperature 97.9 F 97.5 F Pulse Rate 66 73 Respiratory 20 18 Rate Blood Pressure 117/72 136/91 (mmHg) O2 Sat by Pulse 97 97 Oximetry Oxygen Devices in Use Now: None Appearance: sitting up in chair Eyes: No Scleral Icterus Ears/Nose/Mouth/Throat: NL Teeth, Lips, Gums Neck: - - JVP ~18cm Respiratory: Symmetrical Chest Expansion and Respiratory Effort Cardiovascular: RRR Abdominal: NL Sounds; No Tenderness; No Distention Lymphatic: No Cervical Adenopathy Skin: No Rash or Ulcers Neurological: Alert and Oriented x 3 Result Diagrams: 08/01/17 04:36 08/02/17 06:00 Additional Lab and Data: Laboratory Results - last 24 hr 08/01/17 08/01/17 04:36 04:36 WBC 4.2 RBC 3.93 L Hgb 12.5 L Hct 38 L MCV 96 H MCH 32 H MCHC 33 RDW 15 Plt Count 130 L MPV 9 Neut % (Auto) 50.9 Lymph % (Auto) 36.4 [place] % (Auto) 9.4 H Eos % (Auto) 2.4 Baso % (Auto) 0.9 Absolute Neuts (auto) 2.1 Absolute Lymphs (auto) 1.5 Absolute Monos (auto) 0.4 Absolute Eos (auto) 0.1 Absolute Basos (auto) 0 Absolute Nucleated RBC 0 Nucleated RBC % 0 Sodium 137 Potassium 3.8 Chloride 100 L Carbon Dioxide 29 Anion Gap 8 BUN 20 Creatinine 1.01 Est GFR ( Amer) 96.3 Est GFR (Non-Af Amer) 74.9 BUN/Creatinine Ratio 19.8 Glucose 140 H Calcium 9.0 Microbiology and Other Data: Microbiology 07/29/17 14:28 Nasopharyngeal Influenza Types A,B Antigen (VALENTE) - Final Specimen received for Influenza A/B Molecular testing Assess/Plan/Problems-Billing Assessment: 61 year old male H CAD w/ stents 2003, 2010, ?plavix intolerence (?familial), noncompliance to medical advise, p/w acute severe CHF, EF <20% and severe Aortic Stenosis. Diuresing. Planned [facility] this admission. - Patient Problems (1) Aortic stenosis Current Visit: Yes Status: Acute Code(s): I35.0 - NONRHEUMATIC AORTIC (VALVE ) STENOSIS SNOMED Code(s): 63933046 Comment: avoid nitrates (2) CAD (coronary artery disease) Current Visit: Yes Status: Acute Code(s): I25.10 - ATHSCL HEART DISEASE OF [place] CORONARY ARTERY W/O ANG PCTRS SNOMED Code(s): 47122336 Comment: [facility] admission aspirin. statin. beta blockade. 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 will hold for now during acute diuresis. diuresis with 40IV lasix BID, strict io, daily weights (164.2->162->158.8 kg -> 157) life vest prior to discharge Status and Disposition: medicine inpatient. needs aggressive diuresis and C this admission.
[2017-08-02] MEDS: Atorvastatin* 80 MG TAB PO SCH (19:50)
[2017-08-03] MEDS: Heparin VIAL(*) 5000 UNITS/ML VIAL (FIVE THOUSAND) SUBCUT SCH ×3 (06:25→21:15)
[2017-08-03 06:46] LABS: EGFR Non-African American 80.3 (>60)
[2017-08-03] MEDS: Furosemide IV* 10 MG/ML VIAL (40 MG) IV SCH ×2 (09:47→21:15)
[2017-08-03] MEDS: Carvedilol TAB* 6.25 MG PO SCH ×2 (09:47→21:15)
[2017-08-03] MEDS: Aspirin Low Dose CHEW TAB* 81 MG PO SCH (09:47)
[2017-08-03] MEDS ORDERED: Potassium Chloride LIQUID* 20 MEQ PACKET PO ONE (12:00)
[2017-08-03] MEDS ORDERED: Potassium Chlor TAB* 20 MEQ TAB.ER PO ONE (12:50)
[2017-08-03] MEDS: Spironolactone TAB* 25 MG PO SCH (13:05)
--- NOTE | 2017-08-03 16:27 | PN ---
Subjective Date of Service: 08/03/17 Interval History: feels good, no changes. thinks his pants may fit for the first time in a month. no chest pain, sob, syncope or pre-syncope Family History: Unchanged from Admission Social History: Unchanged from Admission Past Medical History: Unchanged from Admission Objective Active Medications: Acetaminophen (Tylenol Tab*) 650 mg PO Q4H PRN PRN Reason: FEVER/PAIN Aspirin (Aspirin Low Dose Tab*) 81 mg PO DAILY [facility] Last Admin: 08/03/17 09:47 Dose: 81 mg Atorvastatin Calcium (Lipitor*) 80 mg PO 2100 [facility] Last Admin: 08/02/17 19:50 Dose: 80 mg Carvedilol (Coreg Tab*) 6.25 mg PO BID [facility] Last Admin: 08/03/17 09:47 Dose: 6.25 mg Furosemide (Lasix Iv*) 40 mg IV BID [facility] Last Admin: 08/03/17 09:47 Dose: 40 mg Heparin Sodium (Porcine) (Heparin Vial(*)) 5,000 units SUBCUT Q8HR [facility] Last Admin: 08/03/17 14:44 Dose: Not Given Ondansetron HCl (Zofran Inj*) 4 mg IV Q6H PRN PRN Reason: NAUSEA Spironolactone (Aldactone Tab*) 12.5 mg PO DAILY [facility] Last Admin: 08/03/17 13:05 Dose: 12.5 mg Vital Signs - 8 hr 08/03/17 08/03/17 08/03/17 08:37 11:38 15:56 Temperature 98.0 F 98.4 F 97.8 F Pulse Rate 81 74 70 Respiratory 16 20 16 Rate Blood Pressure 137/85 126/70 107/65 (mmHg) O2 Sat by Pulse 92 98 99 Oximetry Oxygen Devices in Use Now: None Appearance: sitting up in the chair eating lunch Eyes: No Scleral Icterus Ears/Nose/Mouth/Throat: NL Teeth, Lips, Gums Neck: - - JVP ~14 cm Respiratory: Symmetrical Chest Expansion and Respiratory Effort Cardiovascular: RRR, - - systolic murmur RUSB with radiation to the carotids Abdominal: NL Sounds; No Tenderness; No Distention Lymphatic: No Cervical Adenopathy Extremities: No Edema Skin: No Rash or Ulcers Result Diagrams: 08/01/17 04:36 08/03/17 06:23 Additional Lab and Data: Laboratory Results - last 24 hr 08/01/17 08/01/17 04:36 04:36 WBC 4.2 RBC 3.93 L Hgb 12.5 L Hct 38 L MCV 96 H MCH 32 H MCHC 33 RDW 15 Plt Count 130 L MPV 9 Neut % (Auto) 50.9 Lymph % (Auto) 36.4 [place] % (Auto) 9.4 H Eos % (Auto) 2.4 Baso % (Auto) 0.9 Absolute Neuts (auto) 2.1 Absolute Lymphs (auto) 1.5 Absolute Monos (auto) 0.4 Absolute Eos (auto) 0.1 Absolute Basos (auto) 0 Absolute Nucleated RBC 0 Nucleated RBC % 0 Sodium 137 Potassium 3.8 Chloride 100 L Carbon Dioxide 29 Anion Gap 8 BUN 20 Creatinine 1.01 Est GFR ( Amer) 96.3 Est GFR (Non-Af Amer) 74.9 BUN/Creatinine Ratio 19.8 Glucose 140 H Calcium 9.0 Microbiology and Other Data: Microbiology 07/29/17 14:28 Nasopharyngeal Influenza Types A,B Antigen ([facility]E) - Final Specimen received for Influenza A/B Molecular testing Assess/Plan/Problems-Billing Assessment: 61 year old male PMH CAD w/ stents 2003, 2010, ?plavix intolerence (?familial), noncompliance to medical advise, p/w acute severe CHF, EF <20% and severe Aortic Stenosis. Diuresing. Planned [facility] this admission. 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 saturday continue coreg 6.25mg BID got lisinopril 5mg x once, careful with afterload reduction given severe . will hold for now during acute diuresis. diuresis with 40IV lasix BID, strict io, daily weights (164.2->162->158.8 kg -> 157) life vest prior to discharge (2) Aortic stenosis Current Visit: Yes Status: Acute Code(s): I35.0 - NONRHEUMATIC AORTIC (VALVE ) STENOSIS SNOMED Code(s): 65968081 Comment: avoid nitrates (3) CAD (coronary artery disease) Current Visit: Yes Status: Acute Code(s): I25.10 - ATHSCL HEART DISEASE OF [place] CORONARY ARTERY W/O ANG PCTRS SNOMED Code(s): 33429325 Comment: plan for [facility] this admission aspirin. statin. beta blockade. Status and Disposition: medicine inpatient. needs aggressive diuresis and LHC this admission.
[2017-08-03] MEDS: Atorvastatin* 80 MG TAB PO SCH (21:15)
[2017-08-04] MEDS: Heparin VIAL(*) 5000 UNITS/ML VIAL (FIVE THOUSAND) SUBCUT SCH ×3 (05:27→22:25)
[2017-08-04 08:49] LABS: EGFR Non-African American 78.4 (>60)
[2017-08-04] MEDS: Spironolactone TAB* 25 MG PO SCH (08:50)
[2017-08-04] MEDS: Carvedilol TAB* 6.25 MG PO SCH ×2 (08:50→19:57)
[2017-08-04] MEDS: Furosemide IV* 10 MG/ML VIAL (40 MG) IV SCH ×2 (08:51→19:57)
[2017-08-04] MEDS: Aspirin Low Dose CHEW TAB* 81 MG PO SCH (08:51)
[2017-08-04] MEDS ORDERED: Potassium Chlor TAB* 20 MEQ TAB.ER PO ONE (10:38)
--- NOTE | 2017-08-04 12:32 | PN ---
Subjective Date of Service: 08/04/17 Interval History: diuresing well. no muscle cramps, no orthopnea or dyspnea on exertion. Family History: Unchanged from Admission Social History: Unchanged from Admission Past Medical History: Unchanged from Admission Objective Active Medications: Acetaminophen (Tylenol Tab*) 650 mg PO Q4H PRN PRN Reason: FEVER/PAIN Aspirin (Aspirin Low Dose Tab*) 81 mg PO DAILY [facility] Last Admin: 08/04/17 08:51 Dose: 81 mg Atorvastatin Calcium (Lipitor*) 80 mg PO 2100 [facility] Last Admin: 08/03/17 21:15 Dose: 80 mg Carvedilol (Coreg Tab*) 6.25 mg PO BID [facility] Last Admin: 08/04/17 08:50 Dose: 6.25 mg Furosemide (Lasix Iv*) 40 mg IV BID [facility] Last Admin: 08/04/17 08:51 Dose: 40 mg Heparin Sodium (Porcine) (Heparin Vial(*)) 5,000 units SUBCUT Q8HR [facility] Last Admin: 08/04/17 05:27 Dose: 5,000 units Ondansetron HCl (Zofran Inj*) 4 mg IV Q6H PRN PRN Reason: NAUSEA Spironolactone (Aldactone Tab*) 12.5 mg PO DAILY [facility] Last Admin: 08/04/17 08:50 Dose: 12.5 mg Vital Signs - 8 hr 08/04/17 08/04/17 08/04/17 04:39 07:25 07:57 Temperature 98.2 F 97.9 F Pulse Rate 80 77 Respiratory 20 20 20 Rate Blood Pressure 112/73 126/72 (mmHg) O2 Sat by Pulse 95 96 Oximetry Oxygen Devices in Use Now: None Appearance: obese, sitting up in chair Eyes: No Scleral Icterus Ears/Nose/Mouth/Throat: NL Teeth, Lips, Gums Neck: - - JVP lower today; ~14cm Respiratory: Symmetrical Chest Expansion and Respiratory Effort Cardiovascular: - - harsh systolic murmur with preserved S2 over RUSB, no S3/4 Abdominal: NL Sounds; No Tenderness; No Distention Extremities: - - old discolored scar on left ibarra on venous stasis changes Neurological: Alert and Oriented x 3 Result Diagrams: 08/01/17 04:36 08/04/17 08:27 Additional Lab and Data: Laboratory Results - last 24 hr 08/01/17 08/01/17 04:36 04:36 WBC 4.2 RBC 3.93 L Hgb 12.5 L Hct 38 L MCV 96 H MCH 32 H MCHC 33 RDW 15 Plt Count 130 L MPV 9 Neut % (Auto) 50.9 Lymph % (Auto) 36.4 [facility] % (Auto) 9.4 H Eos % (Auto) 2.4 Baso % (Auto) 0.9 Absolute Neuts (auto) 2.1 Absolute Lymphs (auto) 1.5 Absolute Monos (auto) 0.4 Absolute Eos (auto) 0.1 Absolute Basos (auto) 0 Absolute Nucleated RBC 0 Nucleated RBC % 0 Sodium 137 Potassium 3.8 Chloride 100 L Carbon Dioxide 29 Anion Gap 8 BUN 20 Creatinine 1.01 Est GFR ( Amer) 96.3 Est GFR (Non-Af Amer) 74.9 BUN/Creatinine Ratio 19.8 Glucose 140 H Calcium 9.0 Microbiology and Other Data: Microbiology 07/29/17 14:28 Nasopharyngeal Influenza Types A,B Antigen ([facility]) - Final Specimen received for Influenza A/B Molecular testing Assess/Plan/Problems-Billing Assessment: 61 year old male PMH CAD w/ stents 2003, 2010, ?plavix intolerence (?familial), noncompliance to medical advise, p/w acute severe CHF, EF <20% and severe Aortic Stenosis. Diuresing. Planned [facility] this admission. - Patient Problems (1) Severe systolic congestive heart failure Current Visit: Yes Status: Acute Code(s): I50.20 - UNSPECIFIED SYSTOLIC ( CONGESTIVE) HEART FAILURE SNOMED Code(s): 65136319 Comment: acute, new diagnosis. ef <20% ischemic cadiomyopathy suspected; plan for [facility] saturday continue coreg 6.25mg BID-->may be able to uptitrate this would benefit from an SAHRA- but has been held due to severe aortic stenosis diuresis with 40IV lasix BID, strict io, daily weights, monitor lytes life vest prior to discharge (2) Aortic stenosis Current Visit: Yes Status: Acute Code(s): I35.0 - NONRHEUMATIC AORTIC (VALVE ) STENOSIS SNOMED Code(s): 12479579 Comment: avoid nitrates, caution with afterload reduction (3) CAD (coronary artery disease) Current Visit: Yes Status: Acute Code(s): I25.10 - ATHSCL HEART DISEASE OF [place] CORONARY ARTERY W/O ANG PCTRS SNOMED Code(s): 53135723 Comment: plan for [facility] this admission aspirin. statin. beta blockade. Status and Disposition: medicine inpatient. needs aggressive diuresis and LHC this admission.
[2017-08-04] MEDS: Atorvastatin* 80 MG TAB PO SCH (19:57)
[2017-08-04 23:21] LABS: Urine Appearance Clear; Urine Blood Negative (Negative); Urine Color Yellow; Urine Ketones Negative (Negative); Urine Protein Negative (Negative); Urine Specific Gravity 1.011 (1.010-1.030); Urine Urobilinogen Negative (Negative)
[2017-08-05] MEDS: Heparin VIAL(*) 5000 UNITS/ML VIAL (FIVE THOUSAND) SUBCUT SCH (05:58)
[2017-08-05 06:45] LABS: ABS Basophils 0 10^3/ul (0-0.2); ABS Eosinophils 0.1 10^3/ul (0-0.6); ABS Lymphocytes 1.8 10^3/ul (1.0-4.8); ABS Monocytes 0.8 10^3/ul (0-0.8); ABS Neutrophils 2.8 10^3/ul (1.5-7.7); ABS Nucleated RBC 0 10^3/ul; Eosinophil % 2.1 % (0-6); Hematocrit 41 % (42-52); Hemoglobin 13.5 g/dl (14.0-18.0); Lymphocyte % 32.7 % (25-47); Mean Corpuscular HGB Conc 33 g/dl (31-36); Mean Corpuscular Hemoglobin 32 pg (27-31); Mean Corpuscular Volume 96 fL (80-94); Mean Platelet Volume 10 um3 (7.4-10.4); Nucleated Red Blood Cells % 0; Platelet Count 142 10^3/ul (150-450); Red Blood Count 4.26 10^6/ul (4.0-5.4); Red Cell Distribution Width 15 % (10.5-15); White Blood Count 5.6 10^3/ul (3.5-10.8)
[2017-08-05 06:56] LABS: EGFR Non-African American 69.3 (>60)
[2017-08-05 08:08] VITALS: BP 123/73
[2017-08-05] MEDS: Aspirin Low Dose CHEW TAB* 81 MG PO SCH (09:30)
[2017-08-05] MEDS: Carvedilol TAB* 6.25 MG PO SCH (09:30)
[2017-08-05] MEDS: Furosemide IV* 10 MG/ML VIAL (40 MG) IV SCH (10:16)
[2017-08-05] MEDS: Spironolactone TAB* 25 MG PO SCH (10:16)
--- NOTE | 2017-08-06 01:26 | DS ---
CC: Dr. Marquez * DISCHARGE SUMMARY: DATE OF ADMISSION: 07/29/17 DATE OF DISCHARGE: 08/05/17 PRINCIPAL DISCHARGE DIAGNOSIS: Acute systolic heart failure. SECONDARY DISCHARGE DIAGNOSES: 1. Severe aortic stenosis. 2. Coronary artery disease. 3. Hypertension. 4. Hyperlipidemia. PHYSICAL EXAMINATION AT THE TIME OF DISCHARGE: Temperature 97.3, heart rate 77 , respiratory rate 24, pulse ox 95% on room air, blood pressure 123/73. General : Mr. Robertson is pacing around his room. He is very upset about the care he has received here and refuses the remainder of the physical exam. HOSPITAL COURSE BY PROBLEM: 1. Acute systolic heart failure. Mr. Robertson presented to the emergency department with dyspnea on exertion, orthopnea, and recent weight gain. A transthoracic echocardiogram was obtained and showed a dilated LV with global hypokinesis and an ejection fraction less than 20%. He was also found to have severely reduced RV systolic function and severe aortic stenosis. This was a new diagnosis of heart failure for him and he had only been taking aspirin at home. Upon admission, he was begun on Lasix for diuresis. During this admission, his weight went from 162 kg to 148 kg. He responded well to Lasix 40 mg IV b.i.d. His troponins at admission peaked at 0.08 and his EKG showed sinus tachycardia with inferior Q waves in III and aVF with poor R-wave progression, but no other ST or T-wave changes. Cardiology was consulted who recommended aggressive diuresis prior to an ischemic workup of his cardiomyopathy. On 08/05/17, he was supposed to have a left heart catheterization, but after discussion with Dr. Avila, who explained that should Mr. Robertson have diffuse coronary artery disease, there is a possibility that he may need to be transferred for bypass. Mr. Robertson became irate and insisted that he leave against medical advice. I discussed the risks of leaving AMA to Mr. Robertson including, but not limited to, heart attack, worsening heart failure, and sudden cardiac . He is understanding of these risks and willing to take them any way. I am sending his new prescriptions of Coreg, Lasix, and atorvastatin to his pharmacy. He is to continue his aspirin. Nitrate and SAHRA inhibitor were avoided due to severe aortic stenosis, but he is encouraged to filler picker these other medications and follow up soon with another driver courier of his choice. 2. Severe aortic stenosis. The left heart cath would have been helpful with this as well; however, as above, Mr. Robertson defined he has no history of syncope. 3. Coronary artery disease. He does have a history of stenting in 2003, for which he was taking aspirin. He has had reactions to Plavix. So, no Plavix was added during this admission. He was continued on aspirin. 4. Hypertension. His blood pressure was well controlled on Coreg at this admission. 5. Disposition. Mr. Robertson left against medical advice on 08/05/17 at 12 p.m. understanding all of the risks of leaving in this condition. [id number]/[facility] #: [id number] MTDD
== END 2017-08-05 12:04 | disposition left against medical advice (07) | DRG 293 ==
LOC: ED 13:12 → MEDTELE 15:30
PROVIDERS: ADMIT Internal Medicine; ATTEND Internal Medicine
DX: I11.0 Hypertensive heart disease with heart failure (principal); I42.9 Cardiomyopathy, unspecified; E11.9 Type 2 diabetes mellitus without complications; K21.9 Gastro-esophageal reflux disease without esophagitis; N50.89 Other specified disorders of the male genital organs; I35.0 Nonrheumatic aortic (valve) stenosis; I25.10 Atherosclerotic heart disease of native coronary artery without angina pectoris; E78.5 Hyperlipidemia, unspecified; I50.21 Acute systolic (congestive) heart failure; R74.8 Abnormal levels of other serum enzymes; R00.0 Tachycardia, unspecified; Z79.82 Long term (current) use of aspirin; I25.2 Old myocardial infarction; Z91.14 Patient's other noncompliance with medication regimen; Z82.49 Family history of ischemic heart disease and other diseases of the circulatory system; Z72.89 Other problems related to lifestyle; Z95.5 Presence of coronary angioplasty implant and graft
CPT/HCPCS: 36415; 71046; 80048; 80053; 80061; 81003; 82550; 82553; 83036; 83735; 83880; 84443; 84484; 85025; 85610; 85730; 86140; 87502; 93005; 93306; 93308; 94760; 99284; A9270-GY; C8924; C8929; J1644; J1940

== ENCOUNTER 2023-05-11 09:29 | Inpatient (IN) ==
[2023-05-11] MEDS ORDERED: Furosemide 100 mg/10 ml IV VIAL IV ONE (10:18)
[2023-05-11] MEDS ORDERED: Furosemide 40 mg/4 ml IV VIAL IV SLOW PU ONE (10:35)
[2023-05-11 10:53] LABS: ABS Eosinophils 0.1 10^3/uL (0.0-0.5); ABS Lymphocytes 0.9 10^3/uL (1.0-4.8); ABS Monocytes 0.4 10^3/uL (0.0-1.1); ABS Neutrophils 3.4 10^3/uL (1.5-7.6); Eosinophil % 1.6 %; Hematocrit 38.6 % (38-53); Hemoglobin 12.7 g/dL (13.2-16.3); Lymphocyte % 18.2 %; Mean Corpuscular Hgb Conc 32.9 g/dL (31-36); Mean Corpuscular Volume 94.4 fL (80-97); Platelet Count 188 10^3/uL (150-450); Red Blood Count 4.09 10^6/uL (4.06-5.63); Red Cell Distribution Width 14.7 % (12-17); White Blood Count 4.9 10^3/uL (3.6-10.2)
[2023-05-11 11:11] LABS: INR 5.06 (0.83-1.13)
[2023-05-11 11:18] LABS: Albumin 3.8 g/dL (3.2-5.2); Albumin/Globulin Ratio 1.2 (1-3); Calcium 8.6 mg/dL (8.6-10.3); Creatinine, Serum 1.41 mg/dL (0.67-1.17); Globulin 3.3 g/dL (2-4); Total Protein 7.1 g/dL (6.4-8.9); eGFR CKD-EPI 54.3 (>60)
[2023-05-11 12:22] LABS: High Sensitivity Troponin 1 Hr 38 pg/mL (<20)
[2023-05-11 16:42] LABS: Ferritin 106.9 ng/mL (24-336)
[2023-05-11] MEDS ORDERED: Dextrose 50% Syringe 50 ml 25 GM/50 ML SYRINGE IV PUSH PRN (16:46)
[2023-05-11] MEDS ORDERED: HYDROmorphone 1 MG/1 ML SYRINGE IV SLOW PU PRN (17:19)
[2023-05-11 17:50] LABS: Calcium 8.6 mg/dL (8.6-10.3); Creatinine, Serum 1.32 mg/dL (0.67-1.17); Magnesium 1.7 mg/dL (1.9-2.7); Potassium 3.5 mmol/L (3.5-5.0); eGFR CKD-EPI 58.8 (>60)
[2023-05-11] MEDS ORDERED: Warfarin per PHARMACY **NOTE FOLLOW UP SCH (18:00)
[2023-05-11] MEDS: Ferric Gluconate IV 250 MG in NS 0.9% 250 ml 200 ML IVPB SCH (18:26)
[2023-05-11] MEDS ORDERED: Magnesium Sulfate 2 gm BAG 2 GM/50 ML BAG IVPB ONE (19:22)
[2023-05-11] MEDS ORDERED: Potassium Chlor 20 meq TAB.ER PO ONE (19:23)
[2023-05-11] MEDS: acetaZOLAMIDE IV 500 MG in NS 0.9% 50 ML 50 ML IVPB SCH (20:11)
[2023-05-11] MEDS ORDERED: Bumetanide IV 0.25 MG/ML 4 ml VIAL (1 mg) IV SLOW PU SCH ×2 (21:00)
[2023-05-11] MEDS: Fluticasone NASAL SPRAY 50MCG 16 gm SPRAY BTL INTRANASAL SCH (22:47)
[2023-05-11] MEDS: Senna TAB 8.6 mg TAB PO SCH (22:47)
[2023-05-11] MEDS: Insulin GLARGINE 100 un/ml 10 ml VIAL SUBCUT SCH (23:02)
[2023-05-11] MEDS: Nystatin TOP POWDER 15 GM BTL TOPICAL SCH (23:02)
[2023-05-12 05:47] LABS: Urine Appearance Clear; Urine Bilirubin Negative (Negative); Urine Blood Negative (Negative); Urine Color Yellow; Urine Glucose Negative (Negative); Urine Ketones Negative (Negative); Urine Nitrite Negative (Negative); Urine Protein Negative (Negative); Urine Specific Gravity 1.005 (1.002-1.030); Urine Urobilinogen Positive (Negative)
[2023-05-12 08:08] LABS: ABS Basophils 0.1 10^3/uL (0.0-0.1); ABS Eosinophils 0.1 10^3/uL (0.0-0.5); ABS Lymphocytes 0.9 10^3/uL (1.0-4.8); ABS Monocytes 0.4 10^3/uL (0.0-1.1); ABS Neutrophils 3.2 10^3/uL (1.5-7.6); Eosinophil % 1.6 %; Hematocrit 35.9 % (38-53); Lymphocyte % 19.9 %; Mean Corpuscular Hemoglobin 31.3 pg (27-33); Mean Corpuscular Hgb Conc 33.4 g/dL (31-36); Mean Corpuscular Volume 93.7 fL (80-97); Mean Platelet Volume 8.5 fL (7.5-11.2); Nucleated Red Blood Cells % 0.1 %/100WBC (0.0-0.8); Platelet Count 169 10^3/uL (150-450); Red Blood Count 3.83 10^6/uL (4.06-5.63); Red Cell Distribution Width 14.4 % (12-17); White Blood Count 4.7 10^3/uL (3.6-10.2)
[2023-05-12 08:27] LABS: Albumin 3.4 g/dL (3.2-5.2); Albumin/Globulin Ratio 1.2 (1-3); Calcium 8.3 mg/dL (8.6-10.3); Creatinine, Serum 1.16 mg/dL (0.67-1.17); Globulin 2.9 g/dL (2-4); Potassium 3.2 mmol/L (3.5-5.0); Total Bilirubin 0.9 mg/dL (0.2-1.0); Total Protein 6.3 g/dL (6.4-8.9); eGFR CKD-EPI 68.6 (>60)
[2023-05-12 08:42] LABS: INR 5.09 (0.83-1.13)
[2023-05-12] MEDS ORDERED: DAPAGLIFLOZIN 10 MG TAB (NF) PO SCH (09:00)
[2023-05-12] MEDS: Bumetanide IV 0.25 MG/ML 4 ml VIAL (1 mg) IV SLOW PU SCH ×2 (10:51→13:17)
[2023-05-12] MEDS: Fluticasone NASAL SPRAY 50MCG 16 gm SPRAY BTL INTRANASAL SCH ×2 (10:52→22:09)
[2023-05-12] MEDS: Polyethylene Glycol 3350 17 GM PACKET PO SCH (10:55)
[2023-05-12] MEDS: Nystatin TOP POWDER 15 GM BTL TOPICAL SCH ×3 (10:56→22:27)
[2023-05-12] MEDS ORDERED: Furosemide 40 mg/4 ml IV VIAL IV SLOW PU ONE (11:43)
[2023-05-12] MEDS ORDERED: Magnesium Sulfate 2 gm BAG 2 GM/50 ML BAG IVPB ONE (11:45)
[2023-05-12] MEDS ORDERED: Sulfur Hexaflouride MICROSPHR 25 MG VIAL ONE (13:01)
[2023-05-12 13:02] LABS: TSH Ultra Thyroid Stim Horm 2.2 mcIU/mL (0.34-5.60)
[2023-05-12] MEDS: KCL 20 MEQ/100 ML IVPREMIX 20 MEQ/100 ML BAG IV SCH ×2 (13:17→16:35)
[2023-05-12] MEDS: CMC:DAPAGLIFLOZIN 10 MG TAB (NF) PO SCH (14:07)
[2023-05-12] MEDS ORDERED: KCL 20 MEQ/100 ML IVPREMIX 20 MEQ/100 ML BAG ONE (16:34)
[2023-05-12] MEDS ORDERED: Warfarin - No Order Today **NOTE FOLLOW UP ONE (17:00)
[2023-05-12] MEDS: Ferric Gluconate IV 250 MG in NS 0.9% 250 ml 200 ML IVPB SCH (20:18)
[2023-05-12] MEDS: Senna TAB 8.6 mg TAB PO SCH (22:09)
[2023-05-12] MEDS: Insulin GLARGINE 100 un/ml 10 ml VIAL SUBCUT SCH ×2 (22:23→22:29)
[2023-05-12] MEDS: acetaZOLAMIDE IV 500 MG in NS 0.9% 50 ML 50 ML IVPB SCH (22:51)
[2023-05-13] MEDS: Bumetanide IV 0.25 MG/ML 4 ml VIAL (1 mg) IV SLOW PU SCH ×2 (06:29→12:35)
[2023-05-13 07:05] LABS: ABS Lymphocytes 0.8 10^3/uL (1.0-4.8); ABS Monocytes 0.4 10^3/uL (0.0-1.1); ABS Neutrophils 3.5 10^3/uL (1.5-7.6); ABS Nucleated RBC 0.01 10^3/ul; Hematocrit 37.1 % (38-53); Hemoglobin 12.5 g/dL (13.2-16.3); Lymphocyte % 17.1 %; Mean Corpuscular Hemoglobin 31.8 pg (27-33); Mean Corpuscular Hgb Conc 33.6 g/dL (31-36); Mean Corpuscular Volume 94.5 fL (80-97); Mean Platelet Volume 9.4 fL (7.5-11.2); Nucleated Red Blood Cells % 0.1 %/100WBC (0.0-0.8); Platelet Count 177 10^3/uL (150-450); Red Blood Count 3.93 10^6/uL (4.06-5.63); Red Cell Distribution Width 14.7 % (12-17); White Blood Count 4.8 10^3/uL (3.6-10.2)
[2023-05-13 07:31] LABS: Albumin 3.6 g/dL (3.2-5.2); Albumin/Globulin Ratio 1.2 (1-3); Calcium 8.7 mg/dL (8.6-10.3); Creatinine, Serum 1.58 mg/dL (0.67-1.17); Globulin 3.1 g/dL (2-4); Magnesium 2.1 mg/dL (1.9-2.7); Potassium 3.9 mmol/L (3.5-5.0); Total Bilirubin 0.9 mg/dL (0.2-1.0); Total Protein 6.7 g/dL (6.4-8.9); eGFR CKD-EPI 47.4 (>60)
[2023-05-13 07:46] LABS: INR 2.89 (0.83-1.13)
[2023-05-13] MEDS: CMC:DAPAGLIFLOZIN 10 MG TAB (NF) PO SCH (07:54)
[2023-05-13] MEDS: Nystatin TOP POWDER 15 GM BTL TOPICAL SCH ×3 (07:54→21:06)
[2023-05-13] MEDS: Fluticasone NASAL SPRAY 50MCG 16 gm SPRAY BTL INTRANASAL SCH ×2 (07:55→21:05)
[2023-05-13] MEDS: Polyethylene Glycol 3350 17 GM PACKET PO SCH (07:55)
[2023-05-13 15:17] LABS: Calcium 8.9 mg/dL (8.6-10.3); Creatinine, Serum 1.44 mg/dL (0.67-1.17); Potassium 3.5 mmol/L (3.5-5.0); eGFR CKD-EPI 52.9 (>60)
[2023-05-13 15:50] LABS: Albumin 3.8 g/dL (3.2-5.2); Albumin/Globulin Ratio 1.3 (1-3); Globulin 2.9 g/dL (2-4); Total Bilirubin 0.9 mg/dL (0.2-1.0); Total Protein 6.7 g/dL (6.4-8.9)
[2023-05-13] MEDS: acetaZOLAMIDE IV 500 MG in NS 0.9% 50 ML 50 ML IVPB SCH (17:34)
[2023-05-13 17:43] LABS: Erythrocyte Sed Rate 20 mm/Hr (0-19)
[2023-05-13] MEDS: Ferric Gluconate IV 250 MG in NS 0.9% 250 ml 200 ML IVPB SCH (18:41)
[2023-05-13] MEDS: Insulin GLARGINE 100 un/ml 10 ml VIAL SUBCUT SCH (21:06)
[2023-05-13] MEDS: Senna TAB 8.6 mg TAB PO SCH (21:06)
[2023-05-14] MEDS: Bumetanide IV 0.25 MG/ML 4 ml VIAL (1 mg) IV SLOW PU SCH ×2 (05:39→12:57)
[2023-05-14 06:51] LABS: ABS Eosinophils 0.1 10^3/uL (0.0-0.5); ABS Lymphocytes 1.1 10^3/uL (1.0-4.8); ABS Monocytes 0.5 10^3/uL (0.0-1.1); ABS Neutrophils 3.1 10^3/uL (1.5-7.6); ABS Nucleated RBC 0.01 10^3/ul; Eosinophil % 1.7 %; Hematocrit 37.2 % (38-53); Hemoglobin 12.4 g/dL (13.2-16.3); Lymphocyte % 21.7 %; Mean Corpuscular Hemoglobin 31.2 pg (27-33); Mean Corpuscular Hgb Conc 33.2 g/dL (31-36); Mean Corpuscular Volume 93.9 fL (80-97); Mean Platelet Volume 9.1 fL (7.5-11.2); Nucleated Red Blood Cells % 0.2 %/100WBC (0.0-0.8); Platelet Count 170 10^3/uL (150-450); Red Blood Count 3.97 10^6/uL (4.06-5.63); Red Cell Distribution Width 15.1 % (12-17); White Blood Count 4.9 10^3/uL (3.6-10.2)
[2023-05-14 06:57] LABS: INR 2.16 (0.83-1.13)
[2023-05-14 07:06] LABS: Albumin 3.6 g/dL (3.2-5.2); Albumin/Globulin Ratio 1.2 (1-3); Calcium 8.6 mg/dL (8.6-10.3); Creatinine, Serum 1.25 mg/dL (0.67-1.17); Globulin 2.9 g/dL (2-4); Magnesium 2.2 mg/dL (1.9-2.7); Potassium 3.4 mmol/L (3.5-5.0); Total Bilirubin 0.7 mg/dL (0.2-1.0); Total Protein 6.5 g/dL (6.4-8.9); eGFR CKD-EPI 62.7 (>60)
[2023-05-14] MEDS: Polyethylene Glycol 3350 17 GM PACKET PO SCH (07:56)
[2023-05-14] MEDS: Fluticasone NASAL SPRAY 50MCG 16 gm SPRAY BTL INTRANASAL SCH ×2 (07:57→20:37)
[2023-05-14] MEDS: Nystatin TOP POWDER 15 GM BTL TOPICAL SCH ×3 (07:57→20:37)
[2023-05-14] MEDS: CMC:DAPAGLIFLOZIN 10 MG TAB (NF) PO SCH (08:00)
[2023-05-14] MEDS ORDERED: Potassium Chlor 20 meq TAB.ER PO ONE (09:51)
[2023-05-14] MEDS: Ferric Gluconate IV 250 MG in NS 0.9% 250 ml 200 ML IVPB SCH (16:38)
[2023-05-14] MEDS: acetaZOLAMIDE IV 500 MG in NS 0.9% 50 ML 50 ML IVPB SCH (19:31)
[2023-05-14] MEDS: Insulin GLARGINE 100 un/ml 10 ml VIAL SUBCUT SCH (20:37)
[2023-05-14] MEDS: Senna TAB 8.6 mg TAB PO SCH (20:38)
[2023-05-15] MEDS: Bumetanide IV 0.25 MG/ML 4 ml VIAL (1 mg) IV SLOW PU SCH (06:38)
[2023-05-15 07:38] LABS: ABS Basophils 0.1 10^3/uL (0.0-0.1); ABS Eosinophils 0.1 10^3/uL (0.0-0.5); ABS Lymphocytes 1.2 10^3/uL (1.0-4.8); ABS Monocytes 0.5 10^3/uL (0.0-1.1); ABS Neutrophils 3.5 10^3/uL (1.5-7.6); ABS Nucleated RBC 0.01 10^3/ul; Eosinophil % 1.6 %; Hematocrit 37.5 % (38-53); Hemoglobin 12.4 g/dL (13.2-16.3); Lymphocyte % 22.5 %; Mean Corpuscular Hemoglobin 31.4 pg (27-33); Mean Corpuscular Hgb Conc 33.1 g/dL (31-36); Mean Corpuscular Volume 94.9 fL (80-97); Mean Platelet Volume 9.2 fL (7.5-11.2); Nucleated Red Blood Cells % 0.1 %/100WBC (0.0-0.8); Platelet Count 178 10^3/uL (150-450); Red Blood Count 3.95 10^6/uL (4.06-5.63); Red Cell Distribution Width 14.9 % (12-17); White Blood Count 5.4 10^3/uL (3.6-10.2)
[2023-05-15 07:55] LABS: INR 1.96 (0.83-1.13)
[2023-05-15 07:59] LABS: Creatinine, Serum 1.5 mg/dL (0.67-1.17); Magnesium 2.1 mg/dL (1.9-2.7); Potassium 3.5 mmol/L (3.5-5.0); eGFR CKD-EPI 50.4 (>60)
[2023-05-15] MEDS: Fluticasone NASAL SPRAY 50MCG 16 gm SPRAY BTL INTRANASAL SCH (08:01)
[2023-05-15] MEDS: Nystatin TOP POWDER 15 GM BTL TOPICAL SCH (08:02)
[2023-05-15] MEDS: Polyethylene Glycol 3350 17 GM PACKET PO SCH (08:02)
[2023-05-15] MEDS: CMC:DAPAGLIFLOZIN 10 MG TAB (NF) PO SCH (08:06)
[2023-05-15] MEDS ORDERED: Potassium Chlor 20 meq TAB.ER PO SCH (11:00)
[2023-05-15 13:35] LABS: Creatinine, Serum 1.43 mg/dL (0.67-1.17); Potassium 3.3 mmol/L (3.5-5.0); eGFR CKD-EPI 53.4 (>60)
[2023-05-15 14:16] VITALS: BP 96/70
== END 2023-05-15 14:30 | disposition left against medical advice (07) | DRG 292 ==
LOC: ED 09:29 → EDHOLD 14:31 → SUATTDRO 14:31 → MEDTELE 16:08
PROVIDERS: ADMIT Internal Medicine; ATTEND Hospitalist